=== PATIENT | male | born 1970 | race African-American/Black ===

== ENCOUNTER 2022-08-23 13:17 | Emergency (ER) | payer BC ==
[2022-08-23] MEDS ORDERED: Acetaminophen 500 MG TAB ONE (14:12)
[2022-08-23] MEDS ORDERED: Prochlorperazine 10 MG/2 ML VIAL ONE (14:12)
[2022-08-23] MEDS ORDERED: Ketorolac Tromethamine 30 MG/ML VIAL ONE (14:12)
[2022-08-23] MEDS ORDERED: diphenhydrAMINE 50 MG/ML VIAL ONE (14:12)
== END 2022-08-23 16:10 | disposition home or self-care (01) ==
LOC: CSHERS 13:17
DX: R51.9 Headache, unspecified (principal); F17.210 Nicotine dependence, cigarettes, uncomplicated
CPT/HCPCS: 70450; 96374; 96375; J0780; J1200; J1885

== ENCOUNTER 2023-01-05 16:29 | Outpatient (CLI) | payer BC | END 2023-01-05 16:30 | disposition home or self-care (01) | LOC: CSHRAD 16:29 | PROVIDERS: ATTEND Student in an Organized Health Care Education/Training Program | DX: M54.41 Lumbago with sciatica, right side (principal); M47.816 Spondylosis without myelopathy or radiculopathy, lumbar region | CPT/HCPCS: 72100 ==